=== PATIENT | female | born 1975 | race Two or more races ===

== ENCOUNTER 2016-05-13 14:55 | Inpatient (IN) | payer MEDICAID ==
[~2016-05-13] VITALS: Ht 157.5 cm; Wt 87.2 kg
[2016-05-13 15:47] LABS: Urine Bilirubin Negative (Negative); Urine Blood 1+ /uL (Negative); Urine Color Yellow (Yellow); Urine Glucose Normal (Normal); Urine Hyaline Cast FEW /lpf (0 - 2); Urine Ketone Negative (Negative); Urine Nitrite Negative (Negative); Urine RBC 1 /hpf (0 - 4); Urine Squamous Epithelial Cell FEW /hpf (<5); Urine Urobilinogen Normal (Negative); Urine pH 5.5 (5.0-8.0)
[2016-05-13 15:52] LABS: Basophils # (auto) 0 uL; Basophils % (auto) 0.6 % (0.0-2.0); DEFINITIVE VIEW TRANSMISSION; Eosinophils # (auto) 0.2 uL; Eosinophils % (auto) 2.6 % (0.0-7.0); Hematocrit 33.8 % (36.0-46.0); Hemoglobin 10.7 g/dL (12.2-16.2); Lymphocytes # (auto) 1.9 uL; Lymphocytes % (auto) 27.5 % (10.0-50.0); Mean Corpuscular Hemoglobin 23.1 pg (28.0-32.0); Mean Corpuscular Hgb Conc. 31.7 g/dL (32.0-36.0); Mean Corpuscular Volume 73.1 fL (80.0-100.0); Mean Platelet Volume 9.6 fL (7.4-10.4); Monocytes # (auto) 0.6 uL; Monocytes % (auto) 8.5 % (0.0-12.0); Neutrophils # (auto) 4.2 uL; Neutrophils % (auto) 60.8 % (37.0-80.0); Platelet Count (auto) 356 10^3/uL (140-450); Red Cell Distribution Width 15.8 % (11.6-16.0)
[2016-05-13 16:11] LABS: Albumin 3.7 g/dL (3.4-5.0); Calcium 8.6 mg/dL (8.5-10.1); Potassium 3.8 mmol/L (3.5-5.1)
[2016-05-13 16:15] LABS: Bilirubin, Total 0.2 mg/dL (0.2-1.0); Total Protein 8.4 g/dL (6.4-8.2)
[2016-05-13] MEDS ORDERED: PANTOPRAZOLE 40 MG TAB PO ONE (18:15)
[2016-05-13] MEDS ORDERED: NITROGLYCERIN 0.4 MG SL TAB SL PRN (18:15)
[2016-05-13] MEDS ORDERED: MORPHINE SULF INJ 2 MG/ML SYRINGE 1ML IV PRN (18:15)
[2016-05-13] MEDS ORDERED: ASPirin 81 mg TAB PO ONE (18:15)
[2016-05-13] MEDS ORDERED: KETOROLAC TROMETH 30 MG/ML 1ML VIAL IV ONE (18:15)
[2016-05-13 20:00] VITALS: BP 111/62
[2016-05-13 20:09] VITALS: BP 111/69
[2016-05-13 22:00] VITALS: BP 111/62
[2016-05-13] MEDS: ATORVASTATIN 20 MG TAB PO SCH (22:37)
[2016-05-13] MEDS: ALPRAZolam 0.25 MG TAB PO SCH (22:38)
[2016-05-13] MEDS: METOPROLOL TARTRATE 25 MG TAB PO SCH (22:38)
[2016-05-14] MEDS ORDERED: BENA10TA3 PO (03:09)
[2016-05-14] MEDS ORDERED: SIMV-8 PO (03:09)
[2016-05-14] MEDS ORDERED: FAMO-12 PO (03:09)
[2016-05-14 05:00] VITALS: BP 110/62
[2016-05-14 05:36] LABS: Cholesterol 177 mg/dL (<200); HDL Cholesterol 36 mg/dL (40-59); LDL Cholesterol 119 mg/dL (<100); Triglycerides 224 mg/dL (<150)
[2016-05-14 09:04] VITALS: BP 110/66
[2016-05-14] MEDS: ALPRAZolam 0.25 MG TAB PO SCH ×2 (09:28→21:52)
[2016-05-14] MEDS: METOPROLOL TARTRATE 25 MG TAB PO SCH ×2 (09:29→21:52)
[2016-05-14] MEDS ORDERED: PANTOPRAZOLE 40 MG TAB PO SCH (10:00)
[2016-05-14] MEDS ORDERED: ASPirin 81 mg TAB PO SCH (10:00)
[2016-05-14 12:57] VITALS: BP 115/64
[2016-05-14 16:40] VITALS: BP 110/60
[2016-05-14 17:29] VITALS: BP 110/60
[2016-05-14 21:25] VITALS: BP 117/71
[2016-05-14] MEDS: ATORVASTATIN 20 MG TAB PO SCH (21:50)
== END 2016-05-14 23:40 | disposition home or self-care (01) | DRG 203 ==
LOC: ER 14:57 → TELE 14:58 → TELE-EAST 19:48
PROVIDERS: ADMIT Internal Medicine; ATTEND Internal Medicine
DX: R07.89 Other chest pain (principal); N39.0 Urinary tract infection, site not specified; I10 Essential (primary) hypertension; E78.5 Hyperlipidemia, unspecified; E66.9 Obesity, unspecified; Z88.0 Allergy status to penicillin; Z68.35 Body mass index [BMI] 35.0-35.9, adult
CPT/HCPCS: 36415; 71020; 80053; 80061; 81001; 81025; 84484; 85025; 93005; 96374; J1885

== ENCOUNTER 2016-06-28 19:48 | Emergency (ER) | payer MEDICAID ==
[~2016-06-28 19:48] MED LIST: BENA10TA3 PO; FAMO-12 PO; SIMV-8 PO
[2016-06-28 21:03] LABS: Basophils # (auto) 0 uL; Basophils % (auto) 0.5 % (0.0-2.0); DEFINITIVE VIEW TRANSMISSION; Eosinophils # (auto) 0.1 uL; Eosinophils % (auto) 1.8 % (0.0-7.0); Hemoglobin 10.6 g/dL (12.2-16.2); Lymphocytes # (auto) 1.5 uL; Lymphocytes % (auto) 17.8 % (10.0-50.0); Mean Corpuscular Hemoglobin 23.5 pg (28.0-32.0); Mean Corpuscular Hgb Conc. 32.2 g/dL (32.0-36.0); Mean Corpuscular Volume 73.1 fL (80.0-100.0); Monocytes # (auto) 0.7 uL; Monocytes % (auto) 8.1 % (0.0-12.0); Neutrophils # (auto) 5.9 uL; Neutrophils % (auto) 71.8 % (37.0-80.0); Platelet Count (auto) 357 10^3/uL (140-450); White Blood Cell 8.2 10^3/uL (4.4-10.8)
[2016-06-28 21:30] LABS: Albumin 3.6 g/dL (3.4-5.0); Alkaline Phosphatase 77 U/L (45-117); Anion Gap 10 (5-15); Aspartate Aminotransferase 22 U/L (15-37); BUN/Creatinine Ratio 14.6; Bilirubin, Total 0.2 mg/dL (0.2-1.0); Blood Urea Nitrogen 15 mg/dL (7-18); Carbon Dioxide 25 mmol/L (21-32); Chloride 109 mmol/L (98-107); GFR African American 77 mL/min; GFR Non-African American 63 mL/min; Glucose 125 mg/dL (74-106); Magnesium 2.2 mg/dL (1.6-2.6); Sodium 144 mmol/L (136-145)
[2016-06-28 21:37] LABS: Platelet Estimate Adequate
[2016-06-28 21:38] LABS: Anisocytosis Moderate; Hypochromia Moderate; Ovalocytes FEW; Stomatocytes Few
[2016-06-28 22:31] LABS: Urine Bilirubin Negative (Negative); Urine Blood Negative /uL (Negative); Urine Color Yellow (Yellow); Urine Glucose Normal (Normal); Urine Ketone Negative (Negative); Urine Nitrite Negative (Negative); Urine RBC 1 /hpf (0 - 4); Urine Squamous Epithelial Cell FEW /hpf (<5); Urine Urobilinogen Normal (Negative); Urine pH 6.5 (5.0-8.0)
[2016-06-29 03:30] VITALS: BP 126/77
== END 2016-06-29 03:54 | disposition home or self-care (01) ==
LOC: ER 19:55
DX: R00.2 Palpitations (principal); K29.00 Acute gastritis without bleeding; K21.9 Gastro-esophageal reflux disease without esophagitis; E11.9 Type 2 diabetes mellitus without complications; Z88.0 Allergy status to penicillin; I10 Essential (primary) hypertension
CPT/HCPCS: 36415; 80053; 81001; 81025; 83690; 83735; 84484; 85025; 93005; 94761; 99285; G0434